=== PATIENT | male | born 1960 | race Hispanic/Latino ===

== ENCOUNTER → 2022-02-15 | Outpatient (CLI) | payer OTHER ==
[~2022-02-15] MED LIST: IOPAMIDOL 370 MG/ML 100 ML INFUS..BTL INJ ONE
[2022-02-15 14:28] LABS: CREATININE, SERUM 0.9 mg/dL (0.72-1.25)
== END ==
LOC: CT 13:49
PROVIDERS: ATTEND Internal Medicine Gastroenterology
DX: R19.5 Other fecal abnormalities (principal)
CPT/HCPCS: 36415; 74177; 82565; 84520; Q9967